=== PATIENT | female | born 1990 | race Caucasian/White ===

== ENCOUNTER 2017-11-24 18:35 | Emergency (ER) | payer MEDICAID ==
[2017-11-24 18:43] VITALS: BP 124/75
[2017-11-24] MEDS ORDERED: Sodium Chloride 0.9% 1,000 ML IV ONE (19:21)
[2017-11-24] MEDS ORDERED: Sodium Chloride 0.9% 10 ML Syringe FLUSH PRN (19:22)
[2017-11-24] MEDS ORDERED: Ondansetron 4 MG/2 ML SDV IVPUSH ONE (19:22)
[2017-11-24] MEDS ORDERED: Ketorolac 30 MG/ML SDV IVPUSH ONE (19:22)
[2017-11-24] MEDS ORDERED: diphenhydrAMINE 50 MG/ML SDV IVPUSH ONE (19:22)
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
== END 2017-11-24 20:40 | disposition home or self-care (01) ==
LOC: JD.ED 18:35
DX: G43.909 Migraine, unspecified, not intractable, without status migrainosus (principal); J32.9 Chronic sinusitis, unspecified; Z88.5 Allergy status to narcotic agent; Z87.891 Personal history of nicotine dependence
CPT/HCPCS: 96361; 96374; 96375; 99283; J1200; J1885; J2405; J7040; J7050; 99284

== ENCOUNTER 2019-02-18 11:08 | Emergency (ER) | payer MEDICAID ==
[2019-02-18 11:16] VITALS: BP 99/67
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
[2019-02-18] MEDS ORDERED: Ondansetron 4 MG/2 ML SDV IVPUSH ONE (11:38)
[2019-02-18] MEDS ORDERED: Sodium Chloride 0.9% 1,000 ML IV SCH (11:45)
[2019-02-18] MEDS ORDERED: Diatrizoate Meglumine/Diatrizoate Sodium 37% 120 ML Bottle PO ONE ×2 (11:49→12:28)
[2019-02-18] MEDS ORDERED: Iopamidol 612 MG/ML 100 ML Bottle IVPUSH ONE (11:50)
[2019-02-18] MEDS: Sodium Chloride 0.9% 10 ML Syringe FLUSH PRN ×2 (11:54→13:19)
[2019-02-18] MEDS ORDERED: Sodium Chloride 0.9% 10 ML Syringe FLUSH PRN (11:56)
[2019-02-18] MEDS ORDERED: Sodium Chloride 0.9% 10 ML Syringe FLUSH ONE (12:28)
[2019-02-18] MEDS ORDERED: Iohexol 647 MG/ML 100 ML Bottle IVPUSH ONE (12:28)
[2019-02-18] MEDS ORDERED: Magnesium Citrate Solution 296 ML Bottle PO ONE (16:41)
--- NOTE | 2019-02-21 06:55 | US ---
Pelvic ultrasound: Multiple real-time images were obtained transabdominally and transvaginally. Comparison: Prior CT abdomen and pelvis exam performed earlier on the same day (1:14 PM). Uterus is anteverted. IUD present within the endometrial cavity. Mild prominence vasculature seen around the uterus which is felt to be incidental. Cyst noted within the left ovary measuring 2.9 cm which appears complicated most likely representing small hemorrhagic cyst. Mild amount of free fluid is seen within the pelvis. Small cystic area is noted within the myometrium of the anterior uterus measuring 1.2 cm which is believed to be incidental. Measurements: Uterus: Length 10.1 cm, AP height 4.7 cm,transverse width 6.9 cm Right ovary: 3.4 x 1.7 x 3.8 cm Left ovary: 5.7 x 3.3 x 3.5 cm Impression: 1. Complicated 2.9 cm cyst within the left ovary. Small amount of free fluid within the cul-de-sac most likely representing cyst leakage. 2. Other incidental findings. Diagnostic code #3 I agree with preliminary report from [facility], finalized on 02/18/19, 4:50 PM Central Time
--- NOTE | 2019-02-21 08:53 | CT ---
CT abdomen and pelvis Technique: Multiple axial sections were obtained from above the dome of the diaphragm inferiorly through the pubic symphysis. Intravenous and oral contrast was utilized. Delayed images were obtained through the bladder. Comparison: Prior CT abdomen and pelvis exam of 09/15/13. Findings: Small portion of the visualized lung bases are clear. Liver contains no focal abnormality. Spleen appears within normal limits. Adrenal glands show no nodule. Kidneys show symmetric contrast enhancement without hydronephrosis or mass. Pancreas is within normal limits. Kidneys show symmetric contrast enhancement without hydronephrosis or mass. Gallbladder contains no calcified gallstones. Aorta and iliac vessels show no aneurysm. No retroperitoneal adenopathy is seen. IUD is present within the uterus. Cyst noted within the left ovary measuring about 3.6 cm in size. Mild to moderate amount of free fluid is seen within the pelvis most likely due to cyst leakage. No additional pelvic abnormality is seen. Appendix is seen which is normal in size. Mild mesenteric lymph nodes are seen believed to be within normal limits. Mild amount of increased stool noted within the rectosigmoid region. Bone window settings were reviewed which appear within normal limits for the patient's age. Impression: 1. 3.6 cm cyst within the left ovary with free fluid seen within the pelvis. Findings most likely represent cyst leakage. 2. Normal-appearing appendix is seen. 3. Other incidental findings as noted above. Diagnostic code #3 I agree with preliminary report from [facility], finalized on 02/18/19, 3:07 PM Central Time
== END 2019-02-18 17:01 | disposition home or self-care (01) ==
LOC: JD.ED 11:08
DX: N83.202 Unspecified ovarian cyst, left side (principal); K59.00 Constipation, unspecified; F17.210 Nicotine dependence, cigarettes, uncomplicated; Z88.5 Allergy status to narcotic agent; Z98.890 Other specified postprocedural states
CPT/HCPCS: 36415; 74177; 76856; 80053; 85007; 85027; 86140; 96361; 96374; 99284; A9270; J2405; J7040; Q9963; Q9967

== ENCOUNTER 2019-10-02 17:55 | Emergency (ER) | payer MEDICAID ==
[2019-10-02 18:09] VITALS: BP 102/61; PULSE 90
[2019-10-02] MEDS ORDERED: Iopamidol 755 Mg/ML 100 ML Bottle IVPUSH ONE (18:16)
[2019-10-02] MEDS ORDERED: Sodium Chloride 0.9% 10 ML Syringe FLUSH ONE (18:16)
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
[2019-10-02] MEDS: Sodium Chloride 0.9% 10 ML Syringe FLUSH PRN ×2 (18:30→20:37)
--- NOTE | 2019-10-02 19:41 | CT ---
Head CT Technique: Multiple axial sections through the brain were obtained. Intravenous contrast was not utilized. Comparison: Prior head CT exam of 06/19/14. Findings: Enlarged frontal horn of the left lateral ventricle is seen. This finding is stable from prior exam. Ventricles otherwise appear within normal limits for age. No abnormal parenchymal densities are seen. No evidence of intracranial hemorrhage. No midline shift or mass effect is seen. Visualized mastoid and paranasal sinuses show nothing acute. No acute calvarial abnormality is appreciated. Impression: 1. Enlarged frontal horn of the left lateral ventricle which is a stable finding from prior CT exam. 2. No acute intracranial abnormality is identified. Diagnostic code #2 This report was dictated in [place] Standard Time
--- NOTE | 2019-10-02 19:41 | CT ---
CT chest Technique: Multiple axial sections were obtained from above the lung apices inferiorly through the lung bases. Intravenous contrast was utilized. Comparison: No prior chest CT is available. Findings: Mediastinal air is identified. Aorta shows no aneurysm. Pulmonary arteries appear within normal limits. No mediastinal fluid or adenopathy is seen. No axillary adenopathy is seen. No pericardial thickening is seen. Lungs are clear. No acute parenchymal change is seen. No pneumothorax is identified. No acute osseous finding is seen on bone window settings. Impression: 1. Mediastinal air. Etiology of this finding is not appreciated on this exam. Please correlate if patient's symptoms exclude a nonvisualized esophageal injury as the etiology. 2. Other portions of the CT exam of the chest appears unremarkable. Diagnostic code #3 CT abdomen and pelvis Technique: Multiple axial sections were obtained from above the dome of the diaphragm inferiorly through the pubic symphysis. Intravenous contrast was utilized. No oral contrast has been given. Findings: Liver contains no focal abnormality. Gallbladder contains no calcified gallstones. Spleen appears within normal limits. Adrenal glands show no nodule. Pancreas shows no discrete abnormality. Kidneys show symmetric contrast enhancement and appear without abnormality. Aorta shows no aneurysm. No retroperitoneal adenopathy or mesenteric abnormalities are seen. No pelvic mass or adenopathy is identified. IUD present within the pelvis. Left-sided pelvic varicosities are noted which can be seen normally. No free fluid or inflammatory change is seen. Appendix is seen which is normal in size. Bone window settings were reviewed which shows no acute osseous finding. Impression: 1. Pelvic varicosities which can be seen normally. 2. Nothing acute is appreciated on CT study of the abdomen and pelvis. Diagnostic code #2 This report was dictated in [place] Standard Time
--- NOTE | 2019-10-02 19:41 | CT ---
CT facial bones Technique: Multiple axial sections through the facial bones were obtained. Reconstructed coronal and sagittal images were obtained. Comparison: No prior facial bone study is available. Findings: Paranasal sinuses are clear. No air-fluid levels are seen. Right and left globes are symmetric. No facial bone fracture is identified. Impression: 1. Nothing acute is appreciated on CT study of the facial bones. Diagnostic code #1 This report was dictated in [place] Standard Time
--- NOTE | 2019-10-02 19:41 | CT ---
CT cervical spine Technique: Multiple axial sections were obtained from above C1 inferiorly to the top of T2. Reconstructed sagittal and coronal images were reviewed. Comparison: No prior cervical spine imaging is available. Findings: Mild disc space narrowing is noted at C5-C6. Other disc spaces are preserved. No fracture is identified. No abnormal subluxation is seen. No bony central or bony neural foraminal stenosis is seen. Impression: 1. Mild disc space narrowing at C5-6. 2. Nothing acute is appreciated on CT study of the cervical spine. Diagnostic code #2 This report was dictated in [place] Standard Time
[2019-10-02] MEDS ORDERED: Sodium Chloride 0.9% 1,000 ML IV ONE (20:14)
[2019-10-02] MEDS ORDERED: Iopamidol 612 MG/ML 50 ML SDV IVPUSH ONE (20:17)
[2019-10-02] MEDS ORDERED: Diatrizoate Meglumine/Diatrizoate Sodium 37% 120 ML Bottle PO ONE (20:17)
--- NOTE | 2019-10-02 21:21 | CT ---
CT chest Technique: Multiple axial sections through the chest were obtained. Oral contrast was given to evaluate for esophageal injury. Intravenous contrast also again utilized. Findings: Esophageal contrast remains within the esophageal lumen. No extravasation of any contrast is seen. Mediastinal air is again noted which was seen on earlier CT study performed on the same day. Great vessels appear unremarkable. No pericardial thickening is seen. Visualized upper abdominal structures appear within normal limits. Lungs are clear. No acute parenchymal change is seen. Bone window settings shows nothing acute within the visualized osseous structures. Impression: 1. Mediastinal air is again noted. No etiology is seen for this finding. No evidence of esophageal rupture with no esophageal extravasation of contrast. If patient's clinical symptoms remain stable, recommend noncontrast chest CT study in one week to make sure mediastinal air resolves. Diagnostic code #1 Study was dictated in [place] Standard Time
--- NOTE | 2019-10-02 21:21 | CT ---
CT neck Technique: Multiple axial sections were obtained from the mid maxillary sinus level inferiorly to the lung apices. Intravenous contrast was utilized. Gastrografin water-soluble contrast also given orally. Comparison: Prior chest CT study performed earlier on the same date (8:30 PM). Findings: No contrast extravasation is seen within the cervical esophagus. Thyroid gland appears unremarkable. Submandibular salivary glands appear normal. No soft tissue swelling or other neck abnormality is seen. Bone window settings were reviewed which shows incomplete visualization of C2 and C1. Other portions of the visualized spine appear unremarkable. Epiglottis and prevertebral soft tissues are normal. Impression: 1. No abnormality is appreciated on CT study of the neck. Nothing is seen to explain and etiology of the mediastinal air. Diagnostic code #1 Study was dictated in [place] Standard Time
== END 2019-10-02 21:59 | disposition home or self-care (01) ==
LOC: JD.ED 17:55
DX: S20.212A Contusion of left front wall of thorax, initial encounter (principal); S00.83XA Contusion of other part of head, initial encounter; S40.021A Contusion of right upper arm, initial encounter; S40.022A Contusion of left upper arm, initial encounter; F17.210 Nicotine dependence, cigarettes, uncomplicated; Z88.5 Allergy status to narcotic agent; Y04.2XXA Assault by strike against or bumped into by another person, initial encounter; Y92.89 Other specified places as the place of occurrence of the external cause
CPT/HCPCS: 36415; 70450; 70486; 70491; 71260; 72125; 74177; 80053; 85025; 96360; 99284; J7030; Q9963; Q9967

== ENCOUNTER 2019-10-05 11:44 | Emergency (ER) | payer MEDICAID ==
[2019-10-05 12:03] VITALS: BP 120/92; PULSE 87
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
[2019-10-05] MEDS ORDERED: Ondansetron 4 MG/2 ML SDV IVPUSH ONE (12:40)
[2019-10-05] MEDS ORDERED: Sodium Chloride 0.9% 10 ML Syringe FLUSH PRN (12:40)
[2019-10-05] MEDS ORDERED: Acetaminophen 325 MG Tab PO ONE (12:42)
[2019-10-05] MEDS ORDERED: Sodium Chloride 0.9% 1,000 ML IV SCH (12:45)
[2019-10-05] MEDS ORDERED: Ketorolac 30 MG/ML SDV IVPUSH SCH (12:45)
--- NOTE | 2019-10-05 14:11 | CR ---
Chest: Two views of the chest are obtained. Comparison: No prior chest x-ray, prior chest CT of 10/02/19. Heart size and mediastinum are normal. Lungs are clear. Mediastinal air that was noted on previous CT study not definitely appreciated on this plain film exam. No pneumothorax is seen. Impression: 1. Nothing acute is appreciated on two-view chest x-ray. 2. Previous mediastinal air (seen on prior chest CT) not definitely appreciated on current plain film study. Diagnostic code #1 Study was dictated in [place] Standard Time
[2019-10-05] MEDS ORDERED: traMADol 50 MG Tab PO ONE (14:34)
== END 2019-10-05 15:03 | disposition home or self-care (01) ==
LOC: JD.ED 11:44
DX: S00.03XA Contusion of scalp, initial encounter (principal); S00.83XA Contusion of other part of head, initial encounter; S10.93XA Contusion of unspecified part of neck, initial encounter; S00.12XA Contusion of left eyelid and periocular area, initial encounter; S00.11XA Contusion of right eyelid and periocular area, initial encounter; S40.022A Contusion of left upper arm, initial encounter; G43.909 Migraine, unspecified, not intractable, without status migrainosus; R07.89 Other chest pain; F17.210 Nicotine dependence, cigarettes, uncomplicated; Z88.5 Allergy status to narcotic agent; Z88.6 Allergy status to analgesic agent; Y04.0XXA Assault by unarmed brawl or fight, initial encounter; W19.XXXA Unspecified fall, initial encounter; W22.8XXA Striking against or struck by other objects, initial encounter
CPT/HCPCS: 71046; 96361; 96374; 99285; A9270; J1885; J2405; J7030

== ENCOUNTER 2019-10-08 10:36 | Emergency (ER) | payer MEDICAID ==
[2019-10-08 10:58] VITALS: BP 111/71; PULSE 56
[2019-10-08] MEDS ORDERED: Ketorolac 30 MG/ML SDV IVPUSH ONE (11:22)
[2019-10-08] MEDS ORDERED: Ondansetron 4 MG/2 ML SDV IVPUSH ONE (11:22)
[2019-10-08] MEDS ORDERED: Acetaminophen 325 MG Tab PO ONE (11:22)
[2019-10-08] MEDS ORDERED: traMADol 50 MG Tab PO ONE (11:23)
[2019-10-08] MEDS ORDERED: Sodium Chloride 0.9% 1,000 ML IV SCH (11:30)
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
--- NOTE | 2019-10-08 12:38 | CT ---
Head CT Technique: Multiple axial sections through the brain were obtained. Intravenous contrast was not utilized. Comparison: Prior head CT study of 09/2619. Findings: Dilated frontal horn of the left lateral ventricle is seen which is stable. Ventricles along with basal cisterns and sulci over the convexities are otherwise normal. No abnormal parenchymal densities are seen. No evidence of intracranial hemorrhage. No midline shift or mass-effect is seen. Bone window settings were reviewed. Visualized mastoid sinuses and middle ear cavities are clear. Visualized paranasal sinuses show nothing acute. No acute calvarial abnormality is seen. Impression: 1. No acute intracranial abnormality is seen. No calvarial abnormality is seen. 2. No change is appreciated from previous head CT exam. Diagnostic code #2 This report was dictated in [place] Standard Time
== END 2019-10-08 13:00 | disposition home or self-care (01) ==
LOC: JD.ED 10:36
DX: G43.909 Migraine, unspecified, not intractable, without status migrainosus (principal); Z88.5 Allergy status to narcotic agent
CPT/HCPCS: 70450; 96361; 96374; 96375; 99284; A9270; J1885; J2405; J7030; 99283

== ENCOUNTER 2020-04-09 16:37 | Observation (INO) | payer MEDICAID ==
[2020-04-09] MEDS ORDERED: Sodium Chloride 0.9% 10 ML Syringe FLUSH PRN ×2 (16:56→19:11)
[2020-04-09] MEDS ORDERED: Metoclopramide 10 MG/2 ML SDV IVPUSH ONE (17:07)
[2020-04-09] MEDS ORDERED: fentaNYL 100 MCG/2 ML SDV IVPUSH ONE (17:07)
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
[2020-04-09] MEDS ORDERED: Dicyclomine 10 MG Cap PO ONE (18:27)
[2020-04-09] MEDS ORDERED: Ketorolac 30 MG/ML SDV IVPUSH ONE (18:28)
[2020-04-09] MEDS ORDERED: LORazepam 2 MG/ML SDV IVPUSH ONE (18:34)
[2020-04-09] MEDS ORDERED: Diatrizoate Meglumine/Diatrizoate Sodium 37% 120 ML Bottle PO ONE (19:11)
[2020-04-09] MEDS ORDERED: Iopamidol 612 MG/ML 100 ML Bottle IVPUSH ONE (19:11)
--- NOTE | 2020-04-09 20:14 | CT ---
CT abdomen and pelvis Technique: Multiple axial sections were obtained from above the dome of the diaphragm inferiorly through the pubic symphysis. Intravenous and oral contrast was utilized. Findings: Visualized lung bases show nothing acute. Small amount of fluid is seen around the liver which continues into a portion of the paracolic gutter as well as fluid within the pelvis. Liver contains no abnormalities. Spleen appears within normal limits. Gallbladder contains no calcified gallstones. Kidneys show symmetric contrast enhancement. Adrenal glands show no nodule. Pancreas appears without discrete abnormality. Aorta shows no aneurysm. No retroperitoneal adenopathy is seen. IUD is present within the uterus. Large abnormality is seen within the mid and posterior pelvis measuring about 6.3 cm in size. This finding is suspicious for ovarian torsion. Please correlate if this matches patient's clinical symptoms. Bone window settings were reviewed which shows no acute osseous finding. Impression: 1. Large abnormality within the posterior and mid pelvis. Finding is suspicious for ovarian torsion. Please correlate if this matches clinically. If ovarian torsion seems clinically unlikely, pelvic ultrasound would then be indicated. 2. Fluid within the pelvis and around the liver. 3. No additional abnormality is definitely appreciated. Diagnostic code #5 This report was dictated in MDT
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
--- NOTE | 2020-04-09 21:44 | US ---
Pelvic ultrasound: Multiple real-time images of the pelvis were obtained transvaginally. Large right ovary is seen. Blood flow is noted within the ovary but this does not rule out ovarian torsion due to the ovaries dual blood supply. Right ovary measures 8.1 x 5.9 x 3.6 cm. This enlargement could also represent very ill-defined hemorrhagic cyst with free fluid being seen within the pelvis due to cyst leakage. IUD is noted within the uterus. Uterus is anteverted. No myometrial abnormality is seen. Impression: 1. Large right ovary. Blood flow is noted within the right ovary which does not rule out ovarian torsion due to dual blood supply within the ovaries. 2. Torsion is not excluded although findings may represent large hemorrhagic cyst with cyst leakage as fluid is noted within the pelvis. Please correlate if patient's clinical symptoms help to differentiate between the 2 etiologies of this finding. Diagnostic code #5 This report was dictated in MDT
[2020-04-09] MEDS ORDERED: Ondansetron 4 MG/2 ML SDV IVPUSH PRN (22:54)
[2020-04-09] MEDS ORDERED: HYDROmorphone 1 MG/ML Syringe IVPUSH PRN (22:54)
[2020-04-10] MEDS: Lactated Ringers 1,000 ML IV SCH ×2 (01:26→10:46)
--- NOTE | 2020-04-10 08:20 | US ---
Pelvic ultrasound: Multiple real-time images were obtained transvaginally. Comparison: Prior pelvic ultrasound study of 04/09/20. Echogenic IUD is again seen within the endometrial cavity. Uterus is anteverted. No myometrial abnormality is seen. Endometrial thickness is 8 mm. Left ovary appears normal with follicles. Right ovary is abnormal in size and contains a hypoechoic area either representing hemorrhagic cyst or necrosis. Free fluid is noted within the pelvis which is slightly echogenic compatible with blood. The amount of blood appears to be slightly increased from earlier exam, overall size of the ovary and hypoechoic area within the ovary is stable. Measurements: Uterus: Length 9.2 cm, AP height 4.6 cm, transverse width 5.6 cm Right ovary: 7.8 x 5.0 x 4.2 cm Left ovary: 4.0 x 3.1 x 2.0 cm Impression: 1. Echogenic fluid within the pelvis likely representing blood. 2. Enlarged right ovary containing a large hypoechoic abnormality measuring 7.1 x 4.5 x 3.7 cm. Differential remains the same as previous exam of hemorrhagic cyst which is leaking versus necrotic torsed ovary. Given the increasing blood within the pelvis leaking hemorrhagic cyst is felt to be the most likely etiology. Diagnostic code #5 This report was dictated in MDT
[2020-04-10] MEDS: Acetaminophen 325 MG Tab PO PRN ×2 (10:47→20:15)
--- NOTE | 2020-04-10 13:25 | PCM.SN.2 ---
- Free Text/Narrative Note: Afebrile, pain is better today with significant improvement, 5-6/10 before Tylenol and 2/10 after meds. Abodminal pain of exam is less than last night in ER. Smoker declined nicotine patch. Will feed and saline lock IV. NPO after midnight . Trying to avoid surgery if possible. Patient agrees and states se feels better now than last night. Pain the remains is RLO and suprapubic. CBC in AM.
[2020-04-10] MEDS ORDERED: fentaNYL 100 MCG/2 ML SDV IVPUSH ONE (17:35)
[2020-04-10] MEDS ORDERED: ceFAZolin/Dextrose,Iso-Osmotic 2 GM/50 ML Duplex Bag IV ONE ×2 (20:38→20:45)
--- NOTE | 2020-04-10 20:54 | PCM.SN.2 ---
- Free Text/Narrative Note: Patient had onset of the right lower quadrant pain about 0 tried Fentanyl 50 and then tylenol at about 2014. Still hurting and will take to OR for laparoscopy. After talking with the patient and examining her, she agreed to proceed with laparoscopy possible removal of a tube and or ovary. Patient has been NPO since about noon. OR crew has been called and on way. Will have santana placed. Talked with anesthesia. Dr Sierra will assist.
[2020-04-10] MEDS ORDERED: Bupivacaine 0.5% 30 ML SDV ONE (21:11)
[2020-04-10] MEDS ORDERED: Ondansetron 4 MG/2 ML SDV ONE (21:35)
[2020-04-10] MEDS ORDERED: fentaNYL 250 MCG/5 ML SDV ONE (21:35)
[2020-04-10] MEDS ORDERED: Rocuronium 50 MG/5 ML Vial ONE (21:35)
[2020-04-10] MEDS ORDERED: Propofol 200 MG/20 ML SDV ONE (21:35)
[2020-04-10] MEDS ORDERED: Lidocaine 1% 4 ML ONE (21:35)
[2020-04-10] MEDS ORDERED: ceFAZolin 2 GM in Premix Bag 1 BAG IV ONE (21:35)
[2020-04-10] MEDS ORDERED: Midazolam 1 MG/ML 2 ML SDV ONE (21:35)
[2020-04-10] MEDS ORDERED: Citric Acid/Sodium Citrate Solution 30 ML Cup PO ONE (21:35)
[2020-04-10] MEDS ORDERED: Succinylcholine/Sod PF 100 MG/5 ML SYRINGE IV ONE (21:36)
[2020-04-10] MEDS ORDERED: Lactated Ringers 1,000 ML ONE (22:02)
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
[2020-04-10] MEDS ORDERED: fentaNYL 100 MCG/2 ML SDV IVPUSH PRN (22:27)
--- NOTE | 2020-04-10 23:19 | PCM.OPNOTE ---
- General Post-Op/Procedure Note Date of Surgery/Procedure: 04/10/20 Operative Procedure(s): Laparoscopy with oophorocystectomy right Pre Op Diagnosis: Hemorrhagic cyst right ovary, right lower quadrant pain, hemoperitoneum. Post-Op Diagnosis: Same Anesthesia Technique: General ET Tube Primary Surgeon: Shiva Hinds Secondary Surgeon: Denzel Sierra Anesthesia Provider: Parker Mckeon Guest Relations Coordinator: Gloria Sandhu (PAS) Guest Relations Coordinator: Paola Sanchez ([email or web address]) Reason Guest Relations Coordinator Was Necessary: Assist in surgery, retraction, decrease comorbidity and mortality Role of Guest Relations Coordinator: Assist in surgery, retraction, decrease comorbidity and mortality Fluid Replacement, Intraop: 1,700 Output, Urine Amount: 150 EBL in mLs: 400 (incl hemoperitonium) Drain/Tube Comments:: Tafoya Complications: None Condition: Good Free Text/Narrative:: Intake & Output 04/10/20 04/10/20 04/11/20 14:59 22:59 06:59 Intake Total 903 Balance 903 Patient was transported to operating room #2 in main OR and placed under general anesthesia with endotracheal intubation in the supine position. And draped in a sterile fashion. Tafoya catheter had been placed in the bladder while patient was on medical surgical unit. Given preoperatively. SCDs in place and functioning prior to surgery. Timeout performed confirming name date of and procedure is laparoscopy with possible little of a tube and/or ovary surgery if possible. Possible laparotomy with same removals as above. 2 mL of 0.5% pain injected at the area of the planned incision of the umbilicus inferior portion vertical incision made and 5 mm self-retaining trocar introduced after obtaining pneumoperitoneum as a pneumoperitoneum needle. Right lower quadrant and left lower quadrant 5 mm ports were then placed injecting 2 cc of 0.5% Marcaine in the areas of the planned incision and trocar was introduced without difficulty. At the midline in the old section scar 12 mm port was introduced after injecting 4 mL of 5% Marcaine. Was hemoperitoneum which was aspirated and collected tube portion approximately 400 mL of blood. Minimal blood loss at surgery itself. The left tube and ovary appeared normal the uterus appeared to have some adhesions on the dorsum of the uterus. The right ovary showed what appeared to be a corpus luteum hemorrhagicum. Aspiration of the 400 mL of blood was performed. There was some blood around the liver as had been noted on the previous scans prior to surgery. The corpus luteum hemorrhagicum was removed by utilizing Enseal and countertraction with manipulators to remove the "rind" of the corpus luteum hemorrhagicum. Patient was carried out and remaining portion of blood in the cul-de-sac anterior and posterior removed Interceed was then placed over the right ovary where the cyst had been removed to help decrease postop adhesion formation. The right tube appeared normal the left tube and ovary appeared normal. Sponge needle pack and instrument count correct x2 in the he was terminated by removing the right and left lower quadrant 5 mm ports and confirming no bleeding. The 12 mm port removed with no bleeding. And the 5 mm port at the inferior portion of the umbilicus removed. The 12 mm port site was closed with 3-0 Vicryl on curved urology needle. The skin at all port insertions closed with 3-0 Monocryl interrupted suture. Dermabond applied. Patient transported to postanesthesia care unit in satisfactory condition blood transfusions required an unanticipated present time. Images: 001 the area of the liver and diaphragm 002 liver and diaphragm area 003 the anterior cul-de-sac prior to aspiration of the hemoperitoneum. 004 shows the corpus luteum hemorrhagicum of the right ovary grasped with instruments prior to removal of the major portion of the cyst with the Enseal. 005 right corpus luteum hemorrhagicum 006 out of focus picture of the right ovary after removal of the corpus luteum hemorrhagicum and aspiration of the posterior cul-de-sac aspirator seen at 5-6 o'clock. 007 corpus luteum hemorrhagicum has been removed from the right ovary and no bleeding. 008 right fallopian tube 009 left fallopian tube 010 left ovary 011 left ovary 012 Interceed placed on the right ovary were corpus luteum hemorrhagic and was removed to help decrease adhesion formation postoperatively. 013 right lower quadrant incision after removal of trocar no bleeding 014 left lower quadrant incision after removal of trocar no bleeding 015 anterior 12 mm trocar prior to removal 016 at 12:00 the removal site of the 12 mm trocar shows no bleeding.
--- NOTE | 2020-04-10 23:24 | PCM.POSTAN ---
POST ANESTHESIA ASSESSMENT - MENTAL STATUS Mental Status: Alert, Oriented - VITAL SIGNS Vital Signs: Last Vital Signs Temp 98.6 F 04/10/20 23:09 Pulse 81 04/10/20 17:18 Resp 17 04/10/20 23:09 BP 108/79 04/10/20 23:09 Pulse Ox 99 04/10/20 23:09 - RESPIRATORY Respiratory Status: Respiratory Rate WNL, Airway Patent, O2 Saturation Stable - CARDIOVASCULAR CV Status: Blood Pressure Stable, Elevated Pulse Rate - GASTROINTESTINAL GI Status: No Symptoms - PAIN Pain Score: 0 - POST OP HYDRATION Hydration Status: Adequate & Stable
[2020-04-10] MEDS ORDERED: Ondansetron 4 MG/2 ML SDV IVPUSH PRN (23:30)
[2020-04-10] MEDS ORDERED: Acetaminophen 325 MG Tab PO PRN (23:30)
[2020-04-10] MEDS ORDERED: Ibuprofen 400 MG Tab PO PRN (23:30)
--- NOTE | 2020-04-10 23:56 | PCM48HPAN ---
Post Anesthesia Note - EVALUATION WITHIN 48HRS OF ANESTHETIC Vital Signs in Normal Range: Yes Patient Participated in Evaluation: Yes Respiratory Function Stable: Yes Airway Patent: Yes Cardiovascular Function Stable: Yes Hydration Status Stable: Yes Pain Control Satisfactory: Yes Nausea and Vomiting Control Satisfactory: Yes Mental Status Recovered: Yes Vital Signs: Last Vital Signs Temp 98.6 F 04/10/20 23:09 Pulse 81 04/10/20 17:18 Resp 14 04/10/20 23:45 BP 103/73 04/10/20 23:45 Pulse Ox 100 04/10/20 23:45 - COMMENTS/OBSERVATIONS Free Text/Narrative:: No anesthesia complications noted. Patient is being transferred to back room 27 for overnight observation.
[2020-04-11 08:16] VITALS: BP 100/68; PULSE 56
--- NOTE | 2020-04-11 08:45 | PCM.DCSUM1 ---
Discharge Summary - Hospital Course Free Text/Narrative:: [facility] Post-Op/Procedure Note Patient Name: REX ALEGRE Date of : 86 Patient Status: Observation Attending Provider: Shiva Hinds Date: 04/10/20 23:07 Initialization Date: 04/10/20 23:07 - General Post-Op/Procedure Note Date of Surgery/Procedure: 04/10/20 Operative Procedure(s): Laparoscopy with oophorocystectomy right Pre Op Diagnosis: Hemorrhagic cyst right ovary, right lower quadrant pain, hemoperitoneum. Post-Op Diagnosis: Same Anesthesia Technique: General ET Tube Primary Surgeon: Shiva Hinds Secondary Surgeon: Denzel Sierra Anesthesia Provider: Parker Mckeon Head Swamper: Gloria Sandhu (PAS) Head Swamper: Paola Sanchez (MS4) Reason Head Swamper Was Necessary: Assist in surgery, retraction, decrease comorbidity and mortality Role of Head Swamper: Assist in surgery, retraction, decrease comorbidity and mortality Fluid Replacement, Intraop: 1,700 Output, Urine Amount: 150 EBL in mLs: 400 (incl hemoperitonium) Drain/Tube Comments:: Tafoya Complications: None Condition: Good Free Text/Narrative:: Intake & Output 04/10/20 04/10/20 04/11/20 14:59 22:59 06:59 Intake Total 903 Balance 903 Patient was transported to operating room #2 in main OR and placed under general anesthesia with endotracheal intubation in the supine position. And draped in a sterile fashion. Tafoya catheter had been placed in the bladder while patient was on medical surgical unit. Given preoperatively. SCDs in place and functioning prior to surgery. Timeout performed confirming name date of and procedure is laparoscopy with possible little of a tube and/or ovary surgery if possible. Possible laparotomy with same removals as above. 2 mL of 0.5% pain injected at the area of the planned incision of the umbilicus inferior portion vertical incision made and 5 mm self-retaining trocar introduced after obtaining pneumoperitoneum as a pneumoperitoneum needle. Right lower quadrant and left lower quadrant 5 mm ports were then placed injecting 2 cc of 0.5% Marcaine in the areas of the planned incision and trocar was introduced without difficulty. At the midline in the old section scar 12 mm port was introduced after injecting 4 mL of 5% Marcaine. Was hemoperitoneum which was as pirated and collected tube portion approximately 400 mL of blood. Minimal blood loss at surgery itself. The left tube and ovary appeared normal the uterus appeared to have some adhesions on the dorsum of the uterus. The right ovary showed what appeared to be a corpus luteum hemorrhagicum. Aspiration of the 400 mL of blood was performed. There was some blood around the liver as had been noted on the previous scans prior to surgery. The corpus luteum hemorrhagicum was removed by utilizing Enseal and countertraction with manipulators to remove the "rind" of the corpus luteum hemorrhagicum. Patient was carried out and remaining portion of blood in the cul-de-sac anterior and posterior removed Interceed was then placed over the right ovary where the cyst had been removed to help decrease postop adhesion formation. The right tube appeared normal the left tube and ovary appeared normal. Sponge needle pack and instrument count correct x2 in the he was terminated by removing the right and left lower quadrant 5 mm ports and confirming no bleeding. The 12 mm port removed with no bleeding. And the 5 mm port at the inferior portion of the umbilicus removed. The 12 mm port site was closed with 3-0 Vicryl on curved urology needle. The skin at all port insertions closed with 3-0 Monocryl interrupted suture. Dermabond applied. Patient transported to postanesthesia care unit in tisfactory condition blood transfusions required an unanticipated present time. Images: 001 the area of the liver and diaphragm 002 liver and diaphragm area 003 the anterior cul-de-sac prior to aspiration of the hemoperitoneum. 004 shows the corpus luteum hemorrhagicum of the right ovary grasped with instruments prior to removal of the major portion of the cyst with the Enseal. 005 right corpus luteum hemorrhagicum 006 out of focus picture of the right ovary after removal of the corpus luteum hemorrhagicum and aspiration of the posterior cul-de-sac aspirator seen at 5-6 o'clock. 007 corpus luteum hemorrhagicum has been removed from the right ovary and no bleeding. 008 right fallopian tube 009 left fallopian tube 010 left ovary 011 left ovary 012 Interceed placed on the right ovary were corpus luteum hemorrhagic and was removed to help decrease adhesion formation postoperatively. 013 right lower quadrant incision after removal of trocar no bleeding 014 left lower quadrant incision after removal of trocar no bleeding 015 anterior 12 mm trocar prior to removal 016 at 12:00 the removal site of the 12 mm trocar shows no bleeding. HPI Initial Comments: [facility] Post-Op/Procedure Note Patient Name: REX ALEGRE Date of : 86 Patient Status: Observation Attending Provider: Shiva Hinds Date: 04/10/20 23:07 Initialization Date: 04/10/20 23:07 - General Post-Op/Procedure Note Date of Surgery/Procedure: 04/10/20 Operative Procedure(s): Laparoscopy with oophorocystectomy right Pre Op Diagnosis: Hemorrhagic cyst right ovary, right lower quadrant pain, hemoperitoneum. Post-Op Diagnosis: Same Anesthesia Technique: General ET Tube Primary Surgeon: Shiva Hinds Secondary Surgeon: Denzel Sierra Anesthesia Provider: Parker Mckeon Head Swamper: Gloria Sandhu (PAS) Head Swamper: Paola Sanchez (MS4) Reason Head Swamper Was Necessary: Assist in surgery, retraction, decrease comorbidity and mortality Role of Head Swamper: Assist in surgery, retraction, decrease comorbidity and mortality Fluid Replacement, Intraop: 1,700 Output, Urine Amount: 150 EBL in mLs: 400 (incl hemoperitonium) Drain/Tube Comments:: Tafoya Complications: None Condition: Good Free Text/Narrative:: Intake & Output 04/10/20 04/10/20 04/11/20 14:59 22:59 06:59 Intake Total 903 Balance 903 Patient was transported to operating room #2 in main OR and placed under general anesthesia with endotracheal intubation in the supine position. And draped in a sterile fashion. Tafoya catheter had been placed in the bladder while patient was on medical surgical unit. Given preoperatively. SCDs in place and functioning prior to surgery. Timeout performed confirming name date of and procedure is laparoscopy with possible little of a tube and/or ovary surgery if possible. Possible laparotomy with same removals as above. 2 mL of 0.5% pain injected at the area of the planned incision of the umbilicus inferior portion vertical incision made and 5 mm self-retaining trocar introduced after obtaining pneumoperitoneum as a pneumoperitoneum needle. Right lower quadrant and left lower quadrant 5 mm ports were then placed injecting 2 cc of 0.5% Marcaine in the areas of the planned incision and trocar was introduced without difficulty. At the midline in the old section scar 12 mm port was introduced after injecting 4 mL of 5% Marcaine. Was hemoperitoneum which was aspirated and collected tube portion approximately 400 mL of blood. Minimal blood loss at surgery itself. The left tube and ovary appeared normal the uterus appeared to have some adhesions on the dorsum of the uterus. The right ovary showed what appeared to be a corpus luteum hemorrhagicum. Aspiration of the 400 mL of blood was performed. There was some blood around the liver as had been noted on the previous scans prior to surgery. The corpus luteum hemorrhagicum was removed by utilizing Enseal and countertraction with manipulators to remove the "rind" of the corpus luteum hemorrhagicum. Patient was carried out and remaining portion of blood in the cul-de-sac anterior and posterior removed Interceed was then placed over the right ovary where the cyst had been removed to help decrease postop adhesion formation. The right tube appeared normal the left tube and ovary appeared normal. Sponge needle pack and instrument count correct x2 in the he was terminated by removing the right and left lower quadrant 5 mm ports and confirming no bleeding. The 12 mm port removed with no bleeding. And the 5 mm port at the inferior portion of the umbilicus removed. The 12 mm port site was closed with 3-0 Vicryl on curved urology needle. The skin at all port insertions closed with 3-0 Monocryl interrupted suture. Dermabond applied. Patient transported to postanesthesia care unit in satisfactory condition blood transfusions required an unanticipated present time. Images: 001 the area of the liver and diaphragm 002 liver and diaphragm area 003 the anterior cul-de-sac prior to aspiration of the hemoperitoneum. 004 shows the corpus luteum hemorrhagicum of the right ovary grasped with instruments prior to removal of the major portion of the cyst with the Enseal. 005 right corpus luteum hemorrhagicum 006 out of focus picture of the right ovary after removal of the corpus luteum hemorrhagicum and aspiration of the posterior cul-de-sac aspirator seen at 5-6 o'clock. 007 corpus luteum hemorrhagicum has been removed from the right ovary and no bleeding. 008 right fallopian tube 009 left fallopian tube 010 left ovary 011 left ovary 012 Interceed placed on the right ovary were corpus luteum hemorrhagic and was removed to help decrease adhesion formation postoperatively. 013 right lower quadrant incision after removal of trocar no bleeding 014 left lower quadrant incision after removal of trocar no bleeding 015 anterior 12 mm trocar prior to removal 016 at 12:00 the removal site of the 12 mm trocar shows no bleeding. Brief History: [facility] . Post-Op/Procedure Note. Patient Name: REX ALEGRE [facility] Record Number: [id number]. Date of : 86Patient Status: Observation. Attending Provider: Shiva Hindsount Number: [id number]. Date: 04/10/20 23:07Initialization Date: 04/10/20 23:07. - General Post-Op/Procedure Note. Date of Surgery/Procedure: 04/10/20. Operative Procedure(s): Laparoscopy with oophorocystectomy right. Pre Op Diagnosis: Hemorrhagic cyst right ovary, right lower quadrant pain, hemoperitoneum. Post-Op Diagnosis: Same. Anesthesia Technique: General ET Tube. Primary Surgeon: Shiva Hinds. Secondary Surgeon: Denzel Sierra. Anesthesia Provider: Parker Mckeon. Head Swamper: Gloria Sandhu (PAS). Head Swamper: Paola Sanchez (MS4). Reason Head Swamper Was Necessary: Assist in surgery, retraction, decrease comorbidity and mortality. Role of Head Swamper: Assist in surgery, retraction, decrease comorbidity and mortality. Fluid Replacement, Intraop: 1,700. Output, Urine Amount: 150. EBL in mLs: 400 (incl hemoperitonium). Drain/Tube Comments:: Tafoya. Complications: None. Condition: Good. Free Text/Narrative:: Intake & Output. 04/10/2008/12/2007. 14:[id number]:[id number]. Intake [id number]. [id number]. Patient was transported to operating room #2 in main OR and placed under general anesthesia with endotracheal intubation in the supine position. And draped in a sterile fashion. Tafoya catheter had been placed in the bladder while patient was on medical surgical unit. Given preoperatively. SCDs in place and functioning prior to surgery. Timeout performed confirming name date of and procedure is laparoscopy with possible little of a tube and/or ovary surgery if possible. Possible laparotomy with same removals as above. 2 mL of 0.5% pain injected at the area of the planned incision of the umbilicus inferior portion vertical incision made and 5 mm self-retaining trocar introduced after obtaining pneumoperitoneum as a pneumoperitoneum needle. Right lower quadrant and left lower quadrant 5 mm ports were then placed injecting 2 cc of 0.5% Marcaine in the areas of the planned incision and trocar was introduced without difficulty. At the midline in the old section scar 12 mm port was introduced after injecting 4 mL of 5% Marcaine. Was hemoperitoneum which was aspirated and collected tube portion approximately 400 mL of blood. Minimal blood loss at surgery itself. The left tube and ovary appeared normal the uterus appeared to have some adhesions on the dorsum of the uterus. The right ovary showed what appeared to be a corpus luteum hemorrhagicum. Aspiration of the 400 mL of blood was performed. There was some blood around the liver as had been noted on the previous scans prior to surgery. The corpus luteum hemorrhagicum was removed by utilizing Enseal and countertraction with manipulators to remove the "rind" of the corpus luteum hemorrhagicum. Patient was carried out and remaining portion of blood in the cul-de-sac anterior and posterior removed Interceed was then placed over the right ovary where the cyst had been removed to help decrease postop adhesion formation. The right tube appeared normal the left tube and ovary appeared normal. Sponge needle pack and instrument count correct x2 in the he was terminated by removing the right and left lower quadrant 5 mm ports and confirming no bleeding. The 12 mm port removed with no bleeding. And the 5 mm port at the inferior portion of the umbilicus removed. The 12 mm port site was closed with 3-0 Vicryl on curved urology needle. The skin at all port insertions closed with 3-0 Monocryl interrupted suture. Dermabond applied. Patient transported to postanesthesia care unit in satisfactory condition blood transfusions required an unanticipated present time. Images: 001 the area of the liver and diaphragm. 002 liver and diaphragm area. 003 the anterior cul-de-sac prior to aspiration of the hemoperitoneum. 004 shows the corpus luteum hemorrhagicum of the right ovary grasped with instruments prior to removal of the major portion of the cyst with the Enseal. 005 right corpus luteum hemorrhagicum. 006 out of focus picture of the right ovary after removal of the corpus luteum hemorrhagicum and aspiration of the posterior cul-de-sac aspirator seen at 5-6 o'clock. 007 corpus luteum hemorrhagicum has been removed from the right ovary and no bleeding. 008 right fallopian tube. 009 left fallopian tube. 010 left ovary. 011 left ovary. 012 Interceed placed on the right ovary were corpus luteum hemorrhagic and was removed to help decrease adhesion formation postoperatively. 013 right lower quadrant incision after removal of trocar no bleeding. 014 left lower quadrant incision after removal of trocar no bleeding. 015 anterior 12 mm trocar prior to removal. 016 at 12:00 the removal site of the 12 mm trocar shows no bleeding. Diagnosis: Stroke: No - Discharge Data Discharge Date: 04/11/20 Discharge Disposition: Home, Self-Care 01 Condition: Good - Referral to Home Health Primary Care Physician: CAROL Cherry - Discharge Diagnosis/Problem(s) (1) Right lower quadrant pain SNOMED Code(s): 010878972 ICD Code: R10.31 - RIGHT LOWER QUADRANT PAIN Status: Acute Current Visit: Yes (2) Cyst of ovary, right SNOMED Code(s): 85152836 ICD Code: N83.201 - UNSPECIFIED OVARIAN CYST, RIGHT SIDE Status: Acute Current Visit: Yes - Patient Summary/Data Operative Procedure(s) Performed: Laparoscopy with oophorocystectomy right - Patient Instructions Diet: Usual Diet as Tolerated Driving: Do Not Drive (48 hours) Showering/Bathing: May Shower (6 weeks), No Tub Bathing/Swimming (No tub bath for 6 weeks or swimming for 6 weeks) Wound/Incision Care: Keep Operative Site/Wound Site Clean and Dry Notify Provider of: Fever, Increased Pain, Swelling and Redness, Drainage, Nausea and/or Vomiting - Discharge Plan *PRESCRIPTION DRUG MONITORING PROGRAM REVIEWED*: No *COPY OF PRESCRIPTION DRUG MONITORING REPORT IN PATIENT TAYLOR: No Home Medications: Home Meds . [No Known Home Meds] 04/09/20 [History] Patient Handouts: Steps to Quit Smoking Forms: ED Department Discharge Referrals: Kerry Escalante PA-C [Primary Care Provider] - Shiva Hinds MD [Physician] - (To call today to make an appointment for 04/26/2020 postop check) - Discharge Summary/Plan Comment DC Time >30 min.: No - Patient Data Vitals - Most Recent: Last Vital Signs Temp 98.1 F 04/11/20 08:02 Pulse 56 L 04/11/20 08:02 Resp 20 04/11/20 08:02 BP 100/68 04/11/20 08:02 Pulse Ox 99 04/11/20 08:02 Weight - Most Recent: 130 lb 8 oz I&O - Last 24 hours: Intake & Output 04/10/20 04/11/20 04/11/20 22:59 06:59 14:59 Intake Total 903 2250 Output Total 150 525 Balance 753 1725 Med Orders - Current: Current Medications Acetaminophen (Tylenol) 650 mg PO Q4H PRN PRN Reason: Pain (mild 1-3) Last Admin: 04/11/20 01:02 Dose: 650 mg Documented by: Ibuprofen (Motrin) 600 mg PO Q6H PRN PRN Reason: Pain (mild 1-3) Last Admin: 04/11/20 06:08 Dose: 600 mg Documented by: Ondansetron HCl (Zofran) 4 mg IVPUSH Q4H PRN PRN Reason: Nausea/Vomiting Discontinued Medications Acetaminophen (Tylenol) 650 mg PO Q6H PRN PRN Reason: Pain Last Admin: 04/10/20 20:15 Dose: 650 mg Documented by: Bupivacaine HCl (Marcaine 0.5%) Confirm Administered Dose 30 ml .ROUTE .STK-MED ONE Stop: 04/10/20 21:12 Last Admin: 04/10/20 22:00 Dose: 8 ml Documented by: Cefazolin Sodium/Dextrose (Ancef) Confirm Administered Dose 2 gm IV .STK-MED ONE Stop: 04/10/20 20:39 Last Admin: 04/10/20 20:53 Dose: Not Given Documented by: Cefazolin Sodium/Dextrose (Ancef) 2 gm IV ONETIME ONE Stop: 04/10/20 20:46 Last Admin: 04/10/20 20:53 Dose: Not Given Documented by: Citric Acid/Sodium Citrate (Bicitra Solution) 30 ml PO ONETIME ONE Stop: 04/10/20 21:36 Last Admin: 04/10/20 20:53 Dose: 30 ml Documented by: Diatrizoate Meglum/Diatrizoate Sod (Gastrografin 37%) 90 ml PO ONETIME ONE Stop: 04/09/20 19:12 Last Admin: 04/09/20 19:47 Dose: 90 ml Documented by: Dicyclomine HCl (Bentyl) 20 mg PO ONETIME ONE Stop: 04/09/20 18:28 Last Admin: 04/09/20 18:53 Dose: 20 mg Documented by: Fentanyl (Sublimaze) 50 mcg IVPUSH ONETIME ONE Stop: 04/09/20 17:08 Last Admin: 04/09/20 17:20 Dose: 50 mcg Documented by: Fentanyl (Sublimaze) 50 mcg IVPUSH ONETIME ONE Stop: 04/10/20 17:36 Last Admin: 04/10/20 17:44 Dose: 50 mcg Documented by: Fentanyl (Sublimaze) Confirm Administered Dose 250 mcg .ROUTE .STK-MED ONE Stop: 04/10/20 21:36 Fentanyl (Sublimaze) 100 mcg IVPUSH Q5M PRN PRN Reason: Pain Stop: 04/11/20 22:28 Last Admin: 04/10/20 23:33 Dose: 100 mcg Documented by: Glycopyrrolate () Confirm Administered Dose 1 mg .ROUTE .STK-MED ONE Stop: 04/10/20 22:52 Hydromorphone HCl (Dilaudid) 1 mg IVPUSH Q6H PRN PRN Reason: Abdominal Pain Lactated Ringer's (Ringers, Lactated) 1,000 mls @ 125 mls/hr IV ASDIRECTED [facility] Last Admin: 04/10/20 10:46 Dose: 125 mls/hr Documented by: Cefazolin Sodium/Dextrose 2 gm (/ Premix) 50 mls @ 100 mls/hr IV ONETIME ONE Stop: 04/10/20 22:04 Last Admin: 04/10/20 20:53 Dose: 100 mls/hr Documented by: Lidocaine HCl (Xylocaine-Mpf 1%) Confirm Administered Dose 4 mls @ as directed .ROUTE .STK-MED ONE Stop: 04/10/20 21:36 Lactated Ringer's (Ringers, Lactated) Confirm Administered Dose 1,000 mls @ as directed .ROUTE .STK-MED ONE Stop: 04/10/20 22:03 Iopamidol (Isovue-300 (61%)) 100 ml IVPUSH ONETIME ONE Stop: 04/09/20 19:12 Last Admin: 04/09/20 19:47 Dose: 100 ml Documented by: Ketorolac Tromethamine (Toradol) 30 mg IVPUSH ONETIME ONE Stop: 04/09/20 18:29 Last Admin: 04/09/20 18:51 Dose: 30 mg Documented by: Lorazepam (Ativan) 1 mg IVPUSH ONETIME ONE Stop: 04/09/20 18:35 Last Admin: 04/09/20 18:59 Dose: 1 mg Documented by: Metoclopramide HCl (Reglan) 7.5 mg IVPUSH ONETIME ONE Stop: 04/09/20 17:08 Last Admin: 04/09/20 17:20 Dose: 7.5 mg Documented by: Midazolam HCl (Versed 1 Mg/Ml) Confirm Administered Dose 2 mg .ROUTE .STK-MED ONE Stop: 04/10/20 21:36 Neostigmine Methylsulfate (Neostigmine Methylsulfate) Confirm Administered Dose 5 mg .ROUTE .STK-MED ONE Stop: 04/10/20 22:52 Ondansetron HCl (Zofran) 4 mg IVPUSH Q6H PRN PRN Reason: Nausea Ondansetron HCl (Zofran) Confirm Administered Dose 4 mg .ROUTE .STK-MED ONE Stop: 04/10/20 21:36 Propofol (Diprivan 20 Ml) Confirm Administered Dose 200 mg .ROUTE .STK-MED ONE Stop: 04/10/20 21:36 Rocuronium Forrest (Zemuron) Confirm Administered Dose 50 mg .ROUTE .STK-MED ONE Stop: 04/10/20 21:36 Sodium Chloride (Saline Flush) 10 ml FLUSH ASDIRECTED PRN PRN Reason: Keep Vein Open Last Admin: 04/09/20 17:20 Dose: 10 ml Documented by: Sodium Chloride (Saline Flush) 10 ml FLUSH ONETIME PRN PRN Reason: Keep Vein Open Last Admin: 04/09/20 19:47 Dose: 10 ml Documented by:
== END 2020-04-11 09:56 | disposition home or self-care (01) ==
LOC: JD.ED 16:37 → JD.MS 21:31
PROVIDERS: ADMIT Obstetrics & Gynecology; ATTEND Obstetrics & Gynecology
DX: N83.201 Unspecified ovarian cyst, right side (principal); F17.210 Nicotine dependence, cigarettes, uncomplicated; Z11.59 Encounter for screening for other viral diseases; Z88.5 Allergy status to narcotic agent; Z88.8 Allergy status to other drugs, medicaments and biological substances
CPT/HCPCS: 36415; 51702; 58662; 74177; 76830; 80053; 81001; 81025; 82977; 83690; 85025; 86140; 87635; 96361; 96365; 96375; 96376; 99285; A9270; C1765; G0378; J0330; J0690; J1885; J2001; J2060; J2250; J2405; J2704; J2710; J2765; J3010; J3490; J7120; Q9963; Q9967; 00840; 96374; 99284; U0002